=== PATIENT | female | born 2000 | race Two or more races ===

== ENCOUNTER 2025-03-30 04:16 | Emergency (ER) | payer OTHER ==
[~2025-03-30] VITALS: Ht 160 cm; Wt 60.8 kg
[2025-03-30] MEDS ORDERED: KETOROLAC TROMETHAMINE 60 MG VIAL IM STA (04:49)
[2025-03-30] MEDS ORDERED: KETOROLAC TROMETHAMINE 60 MG VIAL IM ONE (04:54)
[2025-03-30] MEDS ORDERED: HYOSCYAMINE SULFATE 0.125 MG TAB.SUBL ONE (05:17)
[2025-03-30] MEDS ORDERED: HYOSCYAMINE SULFATE 0.125 MG TAB.SUBL SL STA (05:17)
[2025-03-30 05:54] LABS: BASO % 0.6 % (0.1-1.2); EOS # 0.12 (0.04-0.54); EOS % 1.0 % (0.7-7.0); LYMPH # 3.11 (1.18-3.74); LYMPH % 25.4 % (19.3-53.1); MEAN PLATELET VOLUME 10.20 fl (9.4-12.4); MONO # 1.12 (0.24-0.82); MONO % 9.2 % (4.7-12.5); NEUT # 7.78 (1.56-6.13); NEUT % 63.6 % (34.0-71.1); RED CELL DISTRIBUTION WIDTH 12.6 % (11.6-14.4)
[2025-03-30 06:39] LABS: URINE APPEARANCE Clear; URINE BILIRRUBIN Negative (NEGATIVE); URINE BLOOD Large; URINE COLOR Yellow; URINE GLUCOSE Negative (NEGATIVE); URINE KETONE Negative (NEGATIVE); URINE LEUKOCYTE Moderate; URINE NITRATE Negative; URINE PROTEIN Trace (NEGATIVE); URINE UROBILINOGEN 0.2 E.U./dl
[2025-03-30 06:40] LABS: URINE BACTERIA 383.8 uL (0.0-1933); URINE EPITHELIAL CELLS 7.0 uL (0.0-38.8); URINE RBC 269.6 uL (0.0-20.8); URINE WBC 387.0 uL (0.0-23.2)
[2025-03-30 06:42] LABS: URINE CAST 0.58 uL (0.0-1.40)
[2025-03-30] MEDS ORDERED: LEVSIN/SL0.125 MG SL (07:06)
[2025-03-30] MEDS ORDERED: CIPRO500 MG PO (07:06)
== END 2025-03-30 07:09 ==
LOC: ER 04:35
PROVIDERS: General Practice
DX: R30.0 Dysuria (principal); Z88.1 Allergy status to other antibiotic agents; R10.12 Left upper quadrant pain